=== PATIENT | male | born 2000 | race Caucasian/White ===

== ENCOUNTER 2021-01-26 09:56 | Emergency (ER) | payer OTHER ==
[2021-01-26 10:33] LABS: BASOPHIL 0.5 % (0-2); EOSINOPHIL 1.8 % (0-5); HCT 45.4 % (42.0-52.0); HGB 15.8 g/dl (13.2-18.0); LYMPHOCYTE 37.8 % (15-48); MCH 31.2 pg (25.0-31.0); MCHC 34.8 g/dL (32.0-36.0); MCV 89.5 fL (78.0-100.0); MONOCYTE 8.2 % (0-12); NEUTROPHIL 51.4 % (41-80); NRBC 0; PLT 228 K/uL (150-400); RBC 5.07 M/uL (4.70-6.00); RDW 11.7 % (11.5-14.0); WBC 6.1 K/uL (4.0-10.5)
[2021-01-26 10:46] LABS: INR 1.12 (0.9-1.2); PROTHROMBIN TIME 13.8 SECONDS (11.8-13.4); PTT 32.1 SECONDS (24.4-34.7)
[2021-01-26 10:54] LABS: ALBUMIN 4.1 g/dL (3.4-5.0); BILIRUBIN - TOTAL 0.8 mg/dL (0.2-1.0); BUN/CREAT RATIO (CALC) 11.4 RATIO; CREATININE 0.88 mg/dL (0.67-1.17); GLOBULIN (CALCULATION) 3.2 g/dL; POTASSIUM 4.2 mmol/L (3.5-5.1); TOTAL PROTEIN 7.3 g/dL (6.4-8.2)
[2021-01-26] MEDS ORDERED: IBUPROFEN800 MG PO (11:40)
== END 2021-01-26 12:10 | disposition home or self-care (01) ==
LOC: FER 09:56
PROVIDERS: Internal Medicine
DX: R07.89 Other chest pain (principal); Z20.822 Contact with and (suspected) exposure to COVID-19
CPT/HCPCS: 36415; 71045; 80053; 84484; 85025; 85610; 85730; 93005; U0002

== ENCOUNTER 2021-02-04 15:41 | Emergency (ER) | payer OTHER ==
[~2021-02-04 15:41] MED LIST: IBUPROFEN800 MG PO
== END 2021-02-04 19:29 | disposition home or self-care (01) ==
LOC: FER 15:41
DX: S51.811A Laceration without foreign body of right forearm, initial encounter (principal); W26.9XXA Contact with unspecified sharp object(s), initial encounter; Y93.89 Activity, other specified; Y92.830 Public park as the place of occurrence of the external cause